=== PATIENT | male | born 1960 | race Hispanic/Latino ===

== ENCOUNTER 2018-07-16 12:11 | Outpatient (CLI) | payer BC, MEDICARE ==
--- NOTE | 2018-07-16 13:31 | MRI ---
MRI LUMBAR SPINE WITHOUT CONTRAST: INDICATIONS: Parkinson disease with history of chronic low back pain and right lower extremity weakness. COMPARISON: No prior imaging comparison. FINDINGS: There is mild endplate irregularity of the low lumbar spine. No acute compression fracture or signif icant subluxation. There is modic type I degenerative signal alteration of the inferior L4 and the s uperior L5. Degenerative disk space narrowing of multiple levels of the lumbar spine is present with associated disk osteophyte formation. Multilevel bilateral mild to moderate facet osteoarthritis is present. The conus medullaris terminates at the L1 level. L5-S1: There is central zone disk protrusion, superimposed upon disk osteophyte, with effacement of the ventral thecal sac. There is crowding of the traversing right S1 nerve root within the right sub articular zone. Moderate right and mild left neural foraminal stenosis is present. There is exubera nt osteophytosis anteriorly and asymmetrically to the right. Prominent anterior disk osteophyte is p resent. L4-L5: Central disk protrusion is superimposed upon disk osteophyte complex with mild effacement of the ventral thecal sac. There is moderate bilateral neural foraminal stenosis, left greater than rig ht. L3-L4: Broad-based disk osteophyte is present with mild narrowing of the central canal. There is mi ld to moderate bilateral neural foraminal narrowing. L2-L3: Broad-based disk osteophyte is present with moderate central canal stenosis and impingement o f the traversing left L3 nerve root, as well as crowding of the traversing right L3 nerve root. Mode rate right and mild left neural foraminal narrowing is present. L1-L2: No significant central canal or foraminal stenosis. IMPRESSION: Multilevel degenerative change throughout the lumbar spine, as outlined above. POS: [facility]
== END 2018-07-16 12:12 | disposition home or self-care (01) ==
LOC: SCSMRI 12:11
PROVIDERS: ATTEND Psychiatry & Neurology Neurology
DX: G20 Parkinson's disease (principal); M47.816 Spondylosis without myelopathy or radiculopathy, lumbar region
CPT/HCPCS: 72148

== ENCOUNTER 2018-08-29 09:47 | Outpatient (CLI) | payer BC, MEDICARE ==
--- NOTE | 2018-08-29 11:00 | RAD ---
XR Cervical Sp Com W/Obl Fl/Ex History: [M 54.12 cervical radiculopathy] Comparison: None. Findings: There is mild narrowing the left C1/C2 articulation on the open-mouth odontoid view. No acu te fracture or malalignment. There is mild degenerative disc space height loss from C3-C5. Mild uncinate process hypertrophy at these levels. No abnormal translation with flexion or extension. Mild osseous neural foraminal narrowing on the rig ht at C3/C4 and on the left at C4/C5. Mild calcifications of the right carotid bulb. Impression: Mild degenerative changes of the cervical spine. No significant translation with flexion or extension.
--- NOTE | 2018-08-29 11:49 | MRI ---
MRI CERVICAL SPINE WITHOUT CONTRAST: HISTORY: Cervical radiculopathy. Bilateral upper extremity pain, x several years. COMPARISON: None. FINDINGS: Appropriate T1 marrow signal intensity of the cervical vertebrae. Cervical spine vertebral body heig ht is maintained. No fracture. No significant STIR hyperintensity to suggest vertebral body edema o r ligamentous injury. Visualized brain parenchyma, cervicomedullary junction, cervical cord, and the upper thoracic cord have a normal size and signal intensity. C2-C3: No significant central canal stenosis. Neural foramen are patent. C3-C4: Minimal central disk bulge. No significant central canal stenosis. Minimal right foraminal narrowing due to uncovertebral hypertrophy. Left foramen is patent. C4-C5: There is a central/right paracentral disk protrusion. No significant central canal stenosis. Mild right foraminal narrowing due to uncovertebral hypertrophy. The left neural foramen is patent . C5-C6: Broad-based disk-osteophyte complex abuts the thecal sac. No significant central canal steno sis. Moderate right and mild left foraminal narrowing due to uncovertebral hypertrophy. C6-C7: No significant central canal stenosis. Foramen are patent. C7-T1: No significant central canal stenosis. Neural foramen are patent. IMPRESSION: Degenerative changes of the cervical spine as detailed above. POS: [facility]
== END 2018-08-29 09:48 | disposition home or self-care (01) ==
LOC: SCSMRI 09:47
PROVIDERS: ATTEND Anesthesiology Pain Medicine
DX: M47.22 Other spondylosis with radiculopathy, cervical region (principal); M48.02 Spinal stenosis, cervical region
CPT/HCPCS: 72052; 72141

== ENCOUNTER 2019-03-24 02:50 | Emergency (ER) | payer BC, MEDICARE ==
[2019-03-24] MEDS ORDERED: Ondansetron PF 4 MG/2 ML Vial ONE (03:29)
[2019-03-24] MEDS ORDERED: Fentanyl 100 MCG/2 ML VIAL ONE (03:29)
[2019-03-24 03:51] LABS: #Basophils 0.1 thou/uL (0.0-0.2); #Eosinphils 0.2 thou/uL (0.0-0.7); #Lymphocytes 1.9 thou/uL (1.20-3.40); #Monocytes 0.9 thou/uL (0.11-0.59); #Neutrophils 9.2 thou/uL (1.40-6.50); %Basophils 0.4 % (0.0-1.0); %Eosinophils 1.3 % (0.0-10.0); %Lymphocytes 15.2 % (21.0-51.0); %Monocytes 7.6 % (0.0-10.0); %Neutrophils 75.5 % (42.0-75.0); Hemoglobin 16.2 g/dL (14.0-18.0); Mean Corpuscular HGB CONC 33.2 g/dL (32.0-36.0); Mean Corpuscular Hemoglobin 30.2 pg (27.0-31.0); Mean Corpuscular Volume 91.1 fL (78.0-98.0); Mean Platelet Volume 7.3 fL (7.4-10.4); Platelet Count 309 thou/uL (130-400); RBC Distribution Width 11.8 % (11.5-14.5); Red Blood Cell (RBC) Count 5.37 mill/uL (4.70-6.10); White Blood Cell (WBC) Count 12.2 thou/uL (4.8-10.8)
[2019-03-24 04:17] LABS: ALT (SGPT) 9 U/L (8-55); AST (SGOT) 14 U/L (5-34); Albumin 4.2 g/dL (3.5-5.0); Alkaline Phosphatase 88 U/L (40-110); Anion Gap 11 mmol/L (10-20); BUN (Urea Nitrogen) 18 mg/dL (8.4-25.7); Bilirubin, Total 0.3 mg/dL (0.2-1.2); Calc. Creatinine Clearance 0 mL/min (70-130); Carbon Dioxide 25 mmol/L (22-29); Chloride 105 mmol/L (98-107); Estimated GFR-MDRD 52; Globulin 3.2 g/dL (2.4-3.5); Glucose 122 mg/dL (70-105); Lipase 46 U/L (8-78); Potassium 4.1 mmol/L (3.5-5.1); Protein, Total 7.4 g/dL (6.0-8.3); Sodium 137 mmol/L (136-145)
[2019-03-24] MEDS ORDERED: HYDROcodone/Acetaminophen 5/325 mg Tablet ONE (04:49)
[2019-03-24 05:18] LABS: Bacteria/HPF None Seen HPF (None Seen); Bilirubin Negative (Negative); Blood, Urine Trace (Negative); Clarity Clear (Clear); Glucose, Urine (Dipstick) Normal (Negative); Leukocyte Negative Leu/uL (Negative); Mucous/LPF 2+ LPF (<2+); Nitrite Negative (Negative); Protein, Urine (Dipstick) 20 mg/dL (Neg-Trace); RBC/HPF 0-3 HPF (0-3); Squamous Epithelial 0-3 HPF (0-3); Urobilinogen Normal mg/dL (Less than 2); WBC/HPF 0-3 HPF (0-3)
--- NOTE | 2019-03-24 08:32 | CT ---
PRELIMINARY REPORT/[facility]/AFTER HOURS PROCEDURE CT ABDOMEN AND PELVIS WITH INTRAVENOUS CONTRAST: CLINICAL HISTORY: ER 1, 58-year-old male presents to ED c/o right sided groin pain intermittently for 2 weeks. Patient reports this evening started having right sided back pain, got out of bed and started having cramping and pain to groin. Patient reports noticed swelling to area. patient reports h/o of umbilical hernia . TECHNIQUE: Axial computed tomography images of the abdomen and pelvis with intravenous contrast. CONTRAST: With Isovue-370 95 mL. COMPARISON: None provided. FINDINGS: LUNG BASES: No basilar airspace consolidation or pleural effusion. LIVER: Unremarkable. GALLBLADDER AND BILE DUCTS: Unremarkable. No calcified stone. No ductal dilation. PANCREAS: Unremarkable. SPLEEN: Unremarkable. ADRENAL GLANDS: Unremarkable. KIDNEYS, URETERS, AND BLADDER: Unremarkable. No hydronephrosis or nephrolithiasis. No ureteral or alex dder calculi. STOMACH AND BOWEL: Mildly dilated loop of bowel just proximal to the hernia and loops distal to the h ernia are decompressed, compatible with at least a partial small bowel obstruction. APPENDIX: Normal appendix. PERITONEUM: No free fluid. No free air. LYMPH NODES: No lymphadenopathy. REPRODUCTIVE: Unremarkable as visualized. VASCULATURE: Tortuous aorta with scattered atherosclerotic calcifications. BONES: Degenerative changes of the spine. ABDOMINAL WALL AND SOFT TISSUES: Right inguinal hernia containing fat and a loop of bowel. Small left fat-containing inguinal hernia. Tiny fat-containing umbilical hernia. IMPRESSION: Right inguinal hernia containing fat and a loop of bowel with a mildly dilated loop of bowel just pro ximal to the hernia and loops distal to the hernia are decompressed, compatible with at least a parti al small bowel obstruction secondary to the loop of bowel within the hernia. ELECTRONICALLY SIGNED BY: Coral Crawford MD Mar 24, 2019 4:41:14 AM ENVIRONMENTAL HEALTH TECHNOLOGIST This report is intended for review by the ordering physician only, in accordance of law. If you recei ve this report in error, please call [facility] at [phone]. FINAL REPORT CT ABDOMEN AND PELVIS WITH IV CONTRAST: I agree with the preliminary report given by Dr. Coral Crawford of [facility]. CODE QA POS: [facility]
[2019-03-24] MEDS ORDERED: Iopamidol-370 76% 500 ML 1 ML ONE (09:40)
== END 2019-03-24 05:43 | disposition home or self-care (01) ==
LOC: ERS 02:50
DX: K40.90 Unilateral inguinal hernia, without obstruction or gangrene, not specified as recurrent (principal); M54.5 Low back pain; I10 Essential (primary) hypertension; G20 Parkinson's disease; Z79.891 Long term (current) use of opiate analgesic; Z79.899 Other long term (current) drug therapy
CPT/HCPCS: 74177; 80053; 81003; 81015; 83690; 85025; 96374; 96375; J2405; J3010; Q9967

== ENCOUNTER 2019-04-28 10:02 | Day surgery (SDC) | payer BC, MEDICARE ==
--- NOTE | 2019-04-27 08:26 | HP ---
The patient is 5 foot 10, 36 BMI, 256 pounds, has a right inguinal hernia. He has Parkinson's. Plan is robotic repair of his right inguinal hernia with mesh and repair of umbilical hernia with mesh. He understands risks, benefits and consents. He has had this hernia for several months, this is bothersome to him. 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 He is followed by Dr. Hal Chu. SOCIAL HISTORY: Tobacco, none. Alcohol, none. The patient is . PAST MEDICAL HISTORY: Hypertension, Parkinson's. PAST SURGICAL HISTORY: Nasal surgery. MEDICATIONS: 1. Lisinopril 40 mg daily. 2. Fluoxetine 10 mg daily. 3. Amlodipine 10 mg daily. 4. Tramadol p.r.n. pain. 5. Amantadine 100 mg b.i.d. 6. Rytary(carbidopa levodopa ER) 61.25/245 mg at 7:00 a.m., 11:00 a.m., 03:00 p.m., 7:00 p.m. REVIEW OF SYSTEMS: Ten point systems noncontributory. He had a colonoscopy 4-5 years ago. No cardiac symptoms. PHYSICAL EXAMINATION: VITAL SIGNS: Weight 256 pounds, 5 foot 10 inches, 36 BMI, 128/82, 65, 98.8 degrees. HEAD, EARS, EYES, NOSE AND THROAT: Unremarkable. NECK: Axilla, or groin. The patient has mild tremors consistent with Parkinson's. LUNGS: Clear to auscultation. CARDIAC: Rhythm. No murmur or gallop. ABDOMEN: Soft, umbilical hernia, small, reducible. Right inguinal hernia on standing. GENITOURINARY: Testicles normal. Left groin without hernia. EXTREMITIES: Unremarkable. No ankle edema. No lymphadenopathy. ASSESSMENT AND PLAN: Right inguinal hernia. PLAN: 1. Robot mesh repair. 2. Umbilical hernia, plan robot mesh repair. 3. Parkinson's. 4. Hypertension. Job ID: [id number]
[2019-04-27 10:04] VITALS: BMI 35.9
[2019-04-28] MEDS ORDERED: Lidocaine 1% PF 5 ML VIAL ONE (10:13)
[2019-04-28] MEDS ORDERED: PROPOFOL 200 MG/20 ML VIAL ONE (10:13)
[2019-04-28] MEDS ORDERED: Rocuronium Bromide 10 MG/ML (10ML VIAL) ONE (10:13)
[2019-04-28] MEDS ORDERED: Dexamethasone 20 MG/5 ML VIAL ONE (10:13)
[2019-04-28] MEDS ORDERED: Ondansetron PF 4 MG/2 ML Vial ONE (10:13)
[2019-04-28] MEDS ORDERED: ePHEDrine/0.9% NaCl/PF SYRINGE 50 mg/10 ml ONE (10:13)
[2019-04-28] MEDS ORDERED: Glycopyrrolate 0.2 MG/ML 5 ML SYRINGE ONE (10:13)
[2019-04-28] MEDS ORDERED: Gabapentin 300 MG CAP ONE (10:34)
[2019-04-28] MEDS ORDERED: Acetaminophen 500 MG TAB ONE (10:34)
[2019-04-28] MEDS ORDERED: Ketorolac Tromethamine 30 MG/ML VIAL ONE (10:50)
[2019-04-28 11:02] LABS: #Basophils 0.1 thou/uL (0.0-0.2); #Eosinphils 0.2 thou/uL (0.0-0.7); #Lymphocytes 2.3 thou/uL (1.20-3.40); #Neutrophils 6.5 thou/uL (1.40-6.50); %Basophils 1.1 % (0.0-1.0); %Eosinophils 1.7 % (0.0-10.0); %Lymphocytes 22.5 % (21.0-51.0); %Monocytes 9.9 % (0.0-10.0); %Neutrophils 64.9 % (42.0-75.0); Hemoglobin 16.8 g/dL (14.0-18.0); Mean Corpuscular Hemoglobin 28.8 pg (27.0-31.0); Mean Platelet Volume 7.3 fL (7.4-10.4); Platelet Count 307 thou/uL (130-400); RBC Distribution Width 11.7 % (11.5-14.5); Red Blood Cell (RBC) Count 5.83 mill/uL (4.70-6.10); White Blood Cell (WBC) Count 10.1 thou/uL (4.8-10.8)
[2019-04-28 11:14] LABS: Anion Gap 12 mmol/L (10-20); BUN (Urea Nitrogen) 15 mg/dL (8.4-25.7); Calc. Creatinine Clearance 83 mL/min (70-130); Calcium 9.3 mg/dL (7.8-10.44); Carbon Dioxide 26 mmol/L (22-29); Chloride 104 mmol/L (98-107); Estimated GFR-MDRD 46; Glucose 95 mg/dL (70-105); Potassium 4.3 mmol/L (3.5-5.1); Sodium 138 mmol/L (136-145)
[2019-04-28] MEDS ORDERED: Bupivacaine PF 0.5% 30 ML VIAL ONE (14:34)
[2019-04-28] MEDS ORDERED: Fentanyl 100 MCG/2 ML VIAL ONE (14:40)
[2019-04-28] MEDS ORDERED: HYDROmorphone 0.5 MG/0.5 ML SYRINGE ONE (14:41)
[2019-04-28] MEDS ORDERED: Lidocaine 1% w/Epinephrine 1:100K 20 ML VIAL ONE (15:29)
[2019-04-28] MEDS ORDERED: Ondansetron HCl/PF 4 MG/2 ML Vial IVP PRN (16:29)
[2019-04-28] MEDS ORDERED: HYDROmorphone 2 MG/ML VIAL SLOW IVP PRN (16:29)
[2019-04-28] MEDS ORDERED: HYDROcodone/Acetaminophen 5/325 mg Tablet ONE (20:29)
--- NOTE | 2019-04-28 23:37 | OP ---
DATE OF PROCEDURE: 04/28/2019 PREOPERATIVE DIAGNOSES: Umbilical hernia, small defect, right inguinal hernia, large. POSTOPERATIVE DIAGNOSES: Umbilical hernia, small defect, right inguinal hernia, large. PROCEDURE PERFORMED: Robot laparoscopic 3D Bard Max large mesh repair, right inguinal hernia. Open umbilical hernia repair with PDS suture, small defect. ANESTHESIA: General, local 0.5% Marcaine 30 mL mixed with 1% Xylocaine with epinephrine 30 mL total mixture used. DESCRIPTION OF PROCEDURE: The patient was taken to the operating room, where under general anesthesia, Gutierrez catheter was placed at the beginning of the procedure and removed at the end. Abdomen was clipped of hair, prepared with ChloraPrep and draped in routine fashion. Local anesthetic was infiltrated in the skin and subcutaneous tissue about each port site. Supraumbilical left of midline incision was made. Pneumoperitoneum to 15 mmHg obtained through a small incision and a 12 mm balloon port placed. Bilateral far lateral incision was made above the umbilical line and 8 mm port was placed. The robot was docked and hernia repair undertaken. Peritoneal flap dissected freeing the hernia sac and hernia contents from the right inguinal hernia. This was a very large hernia. Gilbert's ligament identified medially and mesh secured and inferior epigastric artery preserved and there was some bleeding. Ray-Kaylee inserted and sponged the bleeding. Good hemostasis was noted. Ray-Kaylee removed. A 3D Bard Max large right mesh replaced, properly positioned, secured to Gilbert's ligament with 2-0 Vicryl and to the anterior abdominal wall just right lateral to the inferior epigastric vessels with 2-0 Vicryl and flap of peritoneum closed with continuous suture of #3-0 Stratafix. Good hemostasis noted. The left side without hernia. Needle was removed. Pneumoperitoneum evacuated. All instruments were removed and the infraumbilical incision made, carried down to skin and subcutaneous tissue and a small fascial defect about a centimeter and a half dissected free and incarcerated, all fatty contents excised and reduced and fascial defect closed with [id number] fashion with interrupted sutures #1 PDS. After this was completed, the subcutaneous tissue was approximated with 3-0 Monocryl and the apex of the umbilicus secured to the fascia with 3-0 Monocryl, and skin was secured with continuous suture of 4-0 Monocryl. Trocar sites closed with continuous suture of 4-0 Monocryl. The patient tolerated the procedure well. Job ID: [id number]
== END 2019-04-28 21:15 | disposition home or self-care (01) ==
LOC: SDC 10:02
PROVIDERS: ATTEND Specialist
PROC: 0YU54JZ Supplement Right Inguinal Region with Synthetic Substitute, Percutaneous Endoscopic Approach (ICD-10-PCS; principal; 2019-04-28)
PROC: 0WQF0ZZ Repair Abdominal Wall, Open Approach (ICD-10-PCS; principal; 2019-04-28)
DX: K40.90 Unilateral inguinal hernia, without obstruction or gangrene, not specified as recurrent (principal); K42.9 Umbilical hernia without obstruction or gangrene; I10 Essential (primary) hypertension; G20 Parkinson's disease; Z79.899 Other long term (current) drug therapy
CPT/HCPCS: 36415; 80048; 85025; 93005; 93010; C1781; J0690; J1100; J1170; J1885; J2001; J2405; J2704; J3010; S0020

== ENCOUNTER 2020-05-16 14:08 | Observation (INO) | payer BC, MEDICARE ==
[~2020-05-16 14:08] MED LIST: Iopamidol 370 76% 100 ML VIAL ONE
[2020-05-16 14:47] LABS: #Eosinphils 0.1 thou/uL (0.0-0.7); #Lymphocytes 1.4 thou/uL (1.20-3.40); #Monocytes 0.8 thou/uL (0.11-0.59); #Neutrophils 7.1 thou/uL (1.40-6.50); %Basophils 0.3 % (0.0-1.0); %Eosinophils 1.1 % (0.0-10.0); %Lymphocytes 14.4 % (21.0-51.0); %Monocytes 8.1 % (0.0-10.0); %Neutrophils 76.1 % (42.0-75.0); Hemoglobin 17.3 g/dL (14.0-18.0); Mean Corpuscular HGB CONC 33.3 g/dL (32.0-36.0); Mean Corpuscular Hemoglobin 30.3 pg (27.0-31.0); Mean Corpuscular Volume 90.9 fL (78.0-98.0); Mean Platelet Volume 7.2 fL (7.4-10.4); Platelet Count 273 thou/uL (130-400); RBC Distribution Width 12.3 % (11.5-14.5); White Blood Cell (WBC) Count 9.4 thou/uL (4.8-10.8)
--- NOTE | 2020-05-16 14:54 | RAD ---
RADIOGRAPH CHEST 1 VIEW: DATE: 05/16/2020 HISTORY: 59-year-old male with sudden onset of acute chest pain and dyspnea. FINDINGS: The thoracic aorta is tortuous and ectatic. There is no evidence of air space density, pneumothorax, or pulmonary edema. The lateral costophrenic angles are sharp. There is no cardiomegaly. IMPRESSION: 1. No acute pulmonary findings. 2. Ectasia of thoracic aorta. jn [] POS: [facility]
[2020-05-16 15:17] LABS: ALT (SGPT) Less than 7 U/L (8-55); AST (SGOT) 18 U/L (5-34); Albumin 4.3 g/dL (3.5-5.0); Alkaline Phosphatase 78 U/L (40-110); Anion Gap 16 mmol/L (10-20); BUN (Urea Nitrogen) 21 mg/dL (8.4-25.7); Bilirubin, Total 0.8 mg/dL (0.2-1.2); Calc. Creatinine Clearance 0 mL/min (70-130); Calcium 9.1 mg/dL (7.8-10.44); Carbon Dioxide 23 mmol/L (22-29); Chloride 107 mmol/L (98-107); Globulin 3.2 g/dL (2.4-3.5); Glucose 115 mg/dL (70-105); Potassium 4.4 mmol/L (3.5-5.1); Protein, Total 7.5 g/dL (6.0-8.3); Sodium 142 mmol/L (136-145)
[2020-05-16] MEDS ORDERED: Aspirin Chewable 81 MG TAB ONE (16:15)
[2020-05-16] MEDS ORDERED: Nitroglycerin 2% Ointment 1 INCH/1 GM Packet ONE (16:15)
[2020-05-16] MEDS ORDERED: Nitroglycerin 0.4 MG TAB (25 Tab Bottle) SL PRN (18:02)
[2020-05-16] MEDS ORDERED: Acetaminophen 325 MG TAB PO PRN (18:02)
--- NOTE | 2020-05-16 18:13 | PDOC.HHP ---
Hospitalist HPI chest pain History of Present Illness: Patient is 59-year-old male with PMH of HTN and Parkinson's disease who presents to the ED with chief complaint of chest pain. Patient states he started having substernal chest pain today around 1:00 PM today after he bent down and picked up his water hose. Pain was achy/tightness, radiates to the neck and left shoulder, associated with shortness of breath and mild dizziness. It lasted for about 20 minutes and resolved without treatment. He also had heartburn yesterday morning. Allergies/Adverse Reactions: Allergy/AdvReac Type Severity Reaction Status Date / Time No Known Allergies Allergy Unverified 04/27/19 10:03 Home Medications: Medication Instructions Recorded Confirmed Type Amantadine HCl [Amantadine] 100 mg PO TID 04/27/19 04/27/19 History Amlodipine [Norvasc] 10 mg PO DAILY 04/27/19 04/27/19 History Carbidopa/Levodopa [Rytary ER] 1 tab PO QID 04/27/19 04/27/19 History FLUoxetine HCl [Prozac] 1 tab PO DAILY 04/27/19 04/27/19 History Lisinopril 40 mg PO DAILY 04/27/19 04/27/19 History traMADol HCl [Tramadol HCl] 1 tab PO PRN PRN 04/27/19 04/27/19 History Past History: PMHx: HTN and Parkinson's disease PSHx: Hernia repair FHx: No family history of heart disease Social: Former smoker, stopped when he was a teenager. Denies alcohol use. Uses marijuana occasionally (last use was about a month ago) Hospitalist HPI ROS Constitutional: denies: fever, chills Eyes: denies: vision change ENT: denies: throat pain Respiratory: reports: shortness of breath. denies: cough Cardiovascular: reports: chest pain Gastrointestinal: denies: nausea, vomiting Genitourinary: denies: dysuria Musculoskeletal: reports: neck pain Skin: denies: rash Other: Negative for BETTENCOURT. Hospitalist Exam General Appearance: NAD, awake alert Eye: PERRL ENT: moist mucosa Neck: supple, no JVD Heart: RRR, no murmur Heart - other findings: Chest nontender Respiratory: CTAB, no wheezes Gastrointestinal: soft, non-tender, non-distended Extremities: no edema Skin - other findings: Face appeared flushed Neurological: normal sensation to touch, no weakness Neurological - other findings: Resting tremors present Musculoskeletal: normal strength Musculoskeletal - other findings: Chest nontender Psychiatric: A&O x 3 Hospitalist Results Result Diagrams: 05/16/20 14:36 05/16/20 14:36 Lab results: Laboratory Last Values WBC 9.4 thou/uL (4.8-10.8) 05/16/20 14:36 RBC 5.70 mill/uL (4.70-6.10) 05/16/20 14:36 Hgb 17.3 g/dL (14.0-18.0) 05/16/20 14:36 Hct 51.9 % (42.0-52.0) 05/16/20 14:36 MCV 90.9 fL (78.0-98.0) 05/16/20 14:36 MCH 30.3 pg (27.0-31.0) 05/16/20 14:36 MCHC 33.3 g/dL (32.0-36.0) 05/16/20 14:36 RDW 12.3 % (11.5-14.5) 05/16/20 14:36 Plt Count 273 thou/uL (130-400) 05/16/20 14:36 MPV 7.2 fL (7.4-10.4) L 05/16/20 14:36 Neutrophils % 76.1 % (42.0-75.0) H 05/16/20 14:36 Lymphocytes % 14.4 % (21.0-51.0) L 05/16/20 14:36 Monocytes % 8.1 % (0.0-10.0) 05/16/20 14:36 Eosinophils % 1.1 % (0.0-10.0) 05/16/20 14:36 Basophils % 0.3 % (0.0-1.0) 05/16/20 14:36 Neutrophils # 7.1 thou/uL (1.40-6.50) H 05/16/20 14:36 Lymphocytes # 1.4 thou/uL (1.20-3.40) 05/16/20 14:36 Monocytes # 0.8 thou/uL (0.11-0.59) H 05/16/20 14:36 Eosinophils # 0.1 thou/uL (0.0-0.7) 05/16/20 14:36 Basophils # 0.0 thou/uL (0.0-0.2) 05/16/20 14:36 Sodium 142 mmol/L (136-145) 05/16/20 14:36 Potassium 4.4 mmol/L (3.5-5.1) 05/16/20 14:36 Chloride 107 mmol/L (98-107) 05/16/20 14:36 Carbon Dioxide 23 mmol/L (22-29) 05/16/20 14:36 Anion Gap 16 mmol/L (10-20) 05/16/20 14:36 BUN 21 mg/dL (8.4-25.7) 05/16/20 14:36 Creatinine 1.57 mg/dL (0.7-1.3) H 05/16/20 14:36 Estimated GFR (MDRD) 45 05/16/20 14:36 Glucose 115 mg/dL (70-105) H 05/16/20 14:36 Calcium 9.1 mg/dL (7.8-10.44) 05/16/20 14:36 Total Bilirubin 0.8 mg/dL (0.2-1.2) 05/16/20 14:36 AST 18 U/L (5-34) 05/16/20 14:36 ALT Less than 7 U/L (8-55) L 05/16/20 14:36 Alkaline Phosphatase 78 U/L (40-110) 05/16/20 14:36 Troponin I 0.013 ng/mL (< 0.028) 05/16/20 14:36 B-Natriuretic Peptide 56.2 pg/mL (0-100) 05/16/20 14:36 Serum Total Protein 7.5 g/dL (6.0-8.3) 05/16/20 14:36 Albumin 4.3 g/dL (3.5-5.0) 05/16/20 14:36 Globulin 3.2 g/dL (2.4-3.5) 05/16/20 14:36 Albumin/Globulin Ratio 1.3 g/dL (1.2-2.2) 05/16/20 14:36 Chest x-ray Status: image reviewed by me EKG Status: image reviewed by me (Sinus tachycardia, Vent rate 102) Hospitalist H&P A/P (1) Chest pain Code(s): R07.9 - CHEST PAIN, UNSPECIFIED Status: Acute Assessment and Plan: Patient presented with substernal chest pain, now resolved. Troponin negative x1. Plan: -trend troponin -CTA chest pending -stress test tomorrow -Nitro SL prn (2) TOSHIA (acute kidney injury) Code(s): N17.9 - ACUTE KIDNEY FAILURE, UNSPECIFIED Status: Acute Assessment and Plan: Patient denies history of CKD. Plan: -IV fluid -repeat lab in AM (3) HTN (hypertension) Code(s): I10 - ESSENTIAL (PRIMARY) HYPERTENSION Status: Chronic Assessment and Plan: Plan: -hold lisinopril for now due to TOSHIA -Continue amlodipine
--- NOTE | 2020-05-16 18:53 | CT ---
CT OF THE CHEST AND ABDOMEN WITH CONTRAST: History: Central chest pain radiating to the neck bilaterally and to the left arm. Technique: Multiple contiguous axial images were obtained in a CTA of the chest and abdomen per aorti c dissection protocol. 3D sagittal and coronal MIP reformats were performed. FINDINGS: The heart is normal in size without focal cardiac abnormality. Calcifications are seen in the coronar y arteries and aorta. No hilar or mediastinal lymphadenopathy are seen. There is a 3-4 mm triangular shaped nodule along the left major fissure along the region of the left upper lobe, which could represent lymph node. No other pulmonary nodules are seen. No pneumothorax or pleural effusion are present. No focal infiltrates are seen. The liver, gallbladder, kidneys, adrenal glands, spleen, and pancreas are unremarkable. No free air, free fluid, or stranding changes are seen in the abdomen. There are a few scattered diverticula in th e colon. The small bowel and appendix are unremarkable. No abdominal adenopathy is seen. The aorta is normal in caliber without evidence of aortic dissection or aneurysmal dilatation. This i ncludes the thoracic and abdominal aorta. The celiac trunk, SMA, and JOSE are patent without significa nt atherosclerotic disease. There is a single renal artery on each side without significant atheroscl erotic disease. Degenerative changes are seen in the spine. The chest and abdominal wall soft tissues are unremarkabl e. IMPRESSION: 1. No evidence of aortic dissection or aneurysmal dilatation. 2. Small nodule in the left upper lobe may represent interfissural lymph node within the left ma eliud fissure. 3. Diverticulosis. POS: [facility]
[2020-05-16] MEDS: Sodium Chloride 0.9% 1,000 ML IV SCH (18:56)
[2020-05-16 20:01] LABS: Troponin I 0.029 ng/mL (< 0.028)
[2020-05-16 21:44] LABS: Troponin I 0.028 ng/mL (< 0.028)
[2020-05-16 22:17] VITALS: BMI 35.9
[2020-05-16] MEDS: Famotidine 20 MG TAB PO SCH (23:26)
[2020-05-16] MEDS ORDERED: Famotidine 20 MG TAB ONE (23:34)
[2020-05-17 05:15] LABS: SARS-CoV-2 PCR by NAA Not Detected (NotDetected)
[2020-05-17 07:03] LABS: #Basophils 0.1 thou/uL (0.0-0.2); #Eosinphils 0.1 thou/uL (0.0-0.7); #Lymphocytes 1.9 thou/uL (1.20-3.40); #Monocytes 1.2 thou/uL (0.11-0.59); #Neutrophils 6.9 thou/uL (1.40-6.50); %Basophils 0.7 % (0.0-1.0); %Eosinophils 1.2 % (0.0-10.0); %Lymphocytes 18.4 % (21.0-51.0); %Monocytes 11.5 % (0.0-10.0); %Neutrophils 68.2 % (42.0-75.0); Mean Corpuscular HGB CONC 33.8 g/dL (32.0-36.0); Mean Corpuscular Hemoglobin 31.4 pg (27.0-31.0); Mean Corpuscular Volume 92.8 fL (78.0-98.0); Mean Platelet Volume 7.3 fL (7.4-10.4); Platelet Count 226 thou/uL (130-400); RBC Distribution Width 12.2 % (11.5-14.5)
[2020-05-17 07:25] LABS: Anion Gap 11 mmol/L (10-20); BUN (Urea Nitrogen) 20 mg/dL (8.4-25.7); Calc. Creatinine Clearance 105 mL/min (70-130); Calcium 8.4 mg/dL (7.8-10.44); Carbon Dioxide 24 mmol/L (22-29); Chloride 108 mmol/L (98-107); Glucose 112 mg/dL (70-105); Potassium 4.5 mmol/L (3.5-5.1); Sodium 138 mmol/L (136-145)
[2020-05-17] MEDS ORDERED: Famotidine 20 MG TAB ONE (08:06)
[2020-05-17] MEDS ORDERED: Aspirin Chewable 81 MG TAB ONE (08:06)
[2020-05-17] MEDS: Sodium Chloride 0.9% 1,000 ML IV SCH (08:32)
[2020-05-17] MEDS: Famotidine 20 MG TAB PO SCH (08:32)
[2020-05-17] MEDS ORDERED: Prevnar 13-Val Conj/PF 0.5 ML SYRINGE IM ONE (09:00)
[2020-05-17] MEDS ORDERED: Aspirin Chewable 81 MG TAB PO SCH (09:00)
[2020-05-17] MEDS ORDERED: Amlodipine 10 MG TAB PO SCH (09:00)
[2020-05-17] MEDS ORDERED: ADENOSINE 60 MG/20 ML VIAL ONE (11:04)
--- NOTE | 2020-05-17 12:05 | NM ---
EXAM: NM Cardiac Stress W EF WF PROVIDED CLINICAL HISTORY: Chest pain COMPARISON: None FINDINGS: This examination was performed as a pharmacologic myocardial perfusion stress test. No significant reversible defect is seen between the stress and resting acquisitions. The gated image s demonstrate normal ventricular wall motion and wall thickening. The calculated left ventricular ejection fraction is 75%. IMPRESSION: 1. Normal myocardial perfusion study without significant reversible defect seen to suggest ischemia. 2. Normal LVEF of 75%.
[2020-05-17 12:20] VITALS: BP 158/95; TEMP 98.7
--- NOTE | 2020-05-17 12:37 | PDOC.BPN ---
- Brief Progress Note [id number] Progress note dictated
--- NOTE | 2020-05-17 13:08 | PRG ---
DATE OF SERVICE: 05/17/2020 SUBJECTIVE: Briefly, this is a 59-year-old male with history of hypertension and Parkinson disease, who presented to the emergency room yesterday with chief complaint of chest pain. The patient earlier today had nausea and vomited once. He is waiting for a stress test. His troponin x3 is negative. OBJECTIVE: GENERAL: Awake, in mild distress. VITAL SIGNS: Temperature is 98.7; blood pressure is 158/95, elevated; respiratory rate is 20; oxygen saturations 98%. HEENT: Normocephalic. NECK: Supple. CHEST: Fair bilateral air entry. HEART: S1 and S2. Regular. ABDOMEN: Soft and nontender. Bowel sounds present. NEURO: Awake, alert, moving extremities. PSYCH: Unable to assess. LABORATORY DATA: Creatinine went down from 1.57 to 1.2. Troponin 0.01. Next troponin 0.02. Next troponin 0.02. CT of the chest, no evidence of dissection or aneurysmal dilatation. Cardiac stress test ordered, still awaiting the results. ASSESSMENT AND PLAN: 1. Acute chest pain. Rule out acute coronary syndrome. Still awaiting on cardiac stress test. 2. Acute kidney injury, improved. 3. Hypertension. The patient is on amlodipine 10 mg daily. Lisinopril was held because of acute kidney injury. The blood pressure remains elevated. We will start the patient on low-dose beta mani. 4. Parkinson disease. Continue with home medications. Job ID: [id number]
--- NOTE | 2020-05-17 14:20 | PDOC.BPN ---
- Brief Progress Note [id number] HP dictated
[2020-05-17] MEDS ORDERED: Carvedilol 3.125 MG TAB PO SCH (17:00)
--- NOTE | 2020-05-18 04:00 | DIS ---
DATE OF ADMISSION: 05/16/2020 DATE OF DISCHARGE: 05/17/2020 FINAL DIAGNOSES: 1. Acute chest pain, acute coronary syndrome was ruled out. 2. Acute kidney injury, improved. 3. Hypertension. The patient was on lisinopril at home, because of acute kidney injury, it was discontinued and the patient was placed on amlodipine 10 mg daily. 4. Parkinson disease. BRIEF HOSPITAL COURSE: Mr. Cordoba is a 59-year-old male with history of hypertension, Parkinson disease, who presents to the emergency room with chief complaint of chest pain. Workup in the emergency room including serial troponins are unremarkable. The patient underwent a cardiac nuclear stress test, which came back negative for ischemia. The patient is feeling better today, chest pain resolved. The patient would like to go home. Assessment, as above. Plan, as above. The patient discharged in stable condition. Diet, heart-healthy diet. Activity, as tolerated. The patient was advised to monitor his blood pressure and to follow with his primary care physician as soon as possible. A prescription was given to the patient for amlodipine. Case discussed with the patient in the presence of his and emergency room RN. Job ID: [id number]
== END 2020-05-17 15:06 | disposition home or self-care (01) ==
LOC: ERS 14:08 → INTOOBSV 17:41 → ERHOLD 17:41
PROVIDERS: ADMIT Internal Medicine; ATTEND Internal Medicine
DX: R07.2 Precordial pain (principal); N17.9 Acute kidney failure, unspecified; I10 Essential (primary) hypertension; G20 Parkinson's disease; R91.1 Solitary pulmonary nodule; K57.31 Diverticulosis of large intestine without perforation or abscess with bleeding; I77.810 Thoracic aortic ectasia; F32.9 Major depressive disorder, single episode, unspecified; F12.11 Cannabis abuse, in remission; Z87.891 Personal history of nicotine dependence; Z79.899 Other long term (current) drug therapy; Z20.822 Contact with and (suspected) exposure to COVID-19
CPT/HCPCS: 36415; 71045; 71275; 74174; 78452; 80048; 80053; 83880; 84484; 85025; 87635; 93005; 93017; A9500; J0153; Q9967; U0003; U0005

== ENCOUNTER 2020-09-05 09:52 | Outpatient (CLI) | payer BC, MEDICARE | END 2020-09-05 09:53 | disposition home or self-care (01) | LOC: BICMRI 09:52 | PROVIDERS: ATTEND Nurse Practitioner Acute Care | DX: M47.26 Other spondylosis with radiculopathy, lumbar region (principal) | CPT/HCPCS: 72148 ==

== ENCOUNTER 2020-12-06 08:52 | Outpatient (CLI) | payer BC, MEDICARE | END 2020-12-06 08:53 | disposition home or self-care (01) | LOC: TBSIIMAG 08:52 | PROVIDERS: ATTEND Neurological Surgery | DX: M47.24 Other spondylosis with radiculopathy, thoracic region (principal) | CPT/HCPCS: 72146 ==

== ENCOUNTER 2022-02-07 05:30 | Day surgery (SDC) | payer BC, MEDICARE ==
[2022-02-06 13:20] VITALS: BMI 35.9
[2022-02-07] MEDS ORDERED: Thrombin 5000 UNITS/5 ML VIAL ONE (06:29)
[2022-02-07] MEDS ORDERED: Bupivacaine HCl 0.5%/Epinephrine 1:200,000/PF 30 ml Vial ONE (06:29)
[2022-02-07] MEDS ORDERED: fentaNYL PF 100 MCG/2 ML SYRINGE ONE (06:43)
[2022-02-07] MEDS ORDERED: CEFAZOLIN 2 GM VIAL ONE ×2 (06:44→10:57)
[2022-02-07 06:47] LABS: #Basophils 0.1 thou/uL (0.0-0.2); #Eosinphils 0.2 thou/uL (0.0-0.7); #Lymphocytes 1.9 thou/uL (1.20-3.40); #Monocytes 0.9 thou/uL (0.11-0.59); #Neutrophils 5.3 thou/uL (1.40-6.50); %Basophils 0.7 % (0.0-1.0); %Lymphocytes 22.4 % (21.0-51.0); %Monocytes 10.9 % (0.0-10.0); %Neutrophils 63.9 % (42.0-75.0); Mean Corpuscular HGB CONC 32.6 g/dL (32.0-36.0); Mean Corpuscular Hemoglobin 30.9 pg (27.0-31.0); Mean Corpuscular Volume 94.7 fl (78.0-98.0); Mean Platelet Volume 7.4 fL (7.4-10.4); Platelet Count 263 10x3/uL (130-400); RBC Distribution Width 12.5 % (11.5-14.5); Red Blood Cell (RBC) Count 5.18 mill/uL (4.70-6.10); White Blood Cell (WBC) Count 8.3 10x3/uL (4.8-10.8)
[2022-02-07] MEDS ORDERED: Sodium Chloride 0.9% 100 ML ONE ×2 (06:52→10:57)
[2022-02-07] MEDS ORDERED: Dexmedetomidine 200 MCG/2 ML VIAL ONE (06:59)
[2022-02-07] MEDS ORDERED: Famotidine/PF 20 mg/2ml Vial ONE (06:59)
[2022-02-07] MEDS ORDERED: Rocuronium Bromide 10 MG/ML (10ML VIAL) ONE (07:03)
[2022-02-07] MEDS ORDERED: Ketorolac Tromethamine 30 MG/ML VIAL ONE (07:03)
[2022-02-07] MEDS ORDERED: Dexamethasone 20 MG/5 ML VIAL ONE (07:03)
[2022-02-07] MEDS ORDERED: PROPOFOL 200 MG/20 ML VIAL ONE (07:03)
[2022-02-07] MEDS ORDERED: Ondansetron PF 4 MG/2 ML Vial ONE (07:03)
[2022-02-07] MEDS ORDERED: HYDROmorphone 2 MG/ML VIAL ONE (07:57)
[2022-02-07] MEDS ORDERED: SUGAMMADEX SODIUM 200 MG/2 ML VIAL ONE ×2 (07:58)
[2022-02-07] MEDS ORDERED: Tamsulosin HCl 0.4 MG CAP ONE (09:02)
[2022-02-07] MEDS ORDERED: FENTANYL 50 MCG/ML 1 ML VIAL ONE (09:08)
[2022-02-07] MEDS ORDERED: HYDROcodone/Acetaminophen 5/325 mg Tablet ONE (10:57)
== END 2022-02-07 12:04 | disposition home or self-care (01) ==
LOC: SDC 05:30
PROVIDERS: ATTEND Neurological Surgery
PROC: 01NR0ZZ Release Sacral Nerve, Open Approach (ICD-10-PCS; principal; 2022-02-07)
DX: M54.16 Radiculopathy, lumbar region (principal); M48.061 Spinal stenosis, lumbar region without neurogenic claudication; M48.07 Spinal stenosis, lumbosacral region; I10 Essential (primary) hypertension; G20 Parkinson's disease; G89.4 Chronic pain syndrome; Z79.899 Other long term (current) drug therapy
CPT/HCPCS: 85025; C1713; J1100; J1170; J1885; J2405; J2704; J3010; J3490; S0028

== ENCOUNTER 2024-12-28 06:27 | Day surgery (SDC) | payer BC, MEDICARE ==
[2024-12-25 11:29] VITALS: BMI 36.6
[2024-12-28] MEDS ORDERED: Bacitracin Zinc Ointment 30 gm TUBE ONE (06:34)
[2024-12-28] MEDS ORDERED: Bupivacaine 0.25% HCL 30 ML VIAL ONE (06:34)
[2024-12-28] MEDS ORDERED: Lidocaine 1% w/Epinephrine 1:100K 20 ML VIAL ONE (06:46)
[2024-12-28] MEDS ORDERED: Lidocaine 1% (PF) 30 ML VIAL ONE (06:47)
[2024-12-28] MEDS ORDERED: CEFAZOLIN 2 GM VIAL ONE (06:48)
[2024-12-28] MEDS ORDERED: Heparin 5,000 UNITS/ML VIAL ONE (06:48)
[2024-12-28] MEDS ORDERED: SUCCINYLCHOLINE/SOD CL,ISO/PF 200 MG/10 ML SYRINGE FS ONE (07:12)
[2024-12-28] MEDS ORDERED: Lidocaine 1% PF 5 ML VIAL ONE (07:12)
[2024-12-28] MEDS ORDERED: Etomidate 40 MG (20 mL) VIAL ONE (07:12)
[2024-12-28] MEDS ORDERED: PROPOFOL 20 ML ONE (07:12)
[2024-12-28] MEDS ORDERED: fentaNYL PF 100 MCG/2 ML SYRINGE ONE ×2 (07:12→07:53)
[2024-12-28] MEDS ORDERED: MINERAL OIL/WHITE PETROLATUM 3.5 GM TUBE ONE (07:13)
[2024-12-28] MEDS ORDERED: Ondansetron PF 4 MG/2 ML Vial ONE (07:31)
[2024-12-28] MEDS ORDERED: PHENYLEPHRINE-NS 100 MCG/ML 10 ML SYRINGE ONE (08:08)
== END 2024-12-28 11:58 | disposition home or self-care (01) ==
LOC: SDC 06:27
PROVIDERS: ATTEND Plastic Surgery
PROC: 09QK0ZZ Repair Nasal Mucosa and Soft Tissue, Open Approach (ICD-10-PCS; principal; 2024-12-28)
PROC: 0HB1XZZ Excision of Face Skin, External Approach (ICD-10-PCS; principal; 2024-12-28)
PROC: 0HQ1XZZ Repair Face Skin, External Approach (ICD-10-PCS; 2024-12-28)
DX: C44.311 Basal cell carcinoma of skin of nose (principal); Z98.890 Other specified postprocedural states
CPT/HCPCS: 88305; 88331; 88332; 93005; 93010; J0169; J0665; J1100; J1644; J2704